=== PATIENT | female | born 1950 | race Caucasian/White ===

== ENCOUNTER → 2020-06-08 | Outpatient (CLI) | payer MEDICARE, OTHER ==
[~2020-06-08] MED LIST: BENAML10/5; HYDACE5 PO; HYDROCHLOROTHIAZIDE; IBUP800 PO; LEVSOD137 PO; NAPR550 PO; OMEPRAZOLE MAGN20 MG; OXYACE5T PO; Prednisone20 MG PO; REDNESS RELIEF15 M1 BOTHEYES; SYNTHROID/LEVOTHROID
== END | disposition home or self-care (01) ==
LOC: PLD 11:49 → LAB SHORT 11:49
DX: D48.5 Neoplasm of uncertain behavior of skin (principal)
CPT/HCPCS: 88305

== ENCOUNTER 2022-06-05 11:23 | Day surgery (SDC) | payer MEDICARE, OTHER ==
[~2022-06-05] VITALS: Ht 165.1 cm; Wt 72.7 kg
--- NOTE | 2022-06-05 12:46 | NUR ---
06/05/22 1246 RED POOLE 0.15MG OF EPI ADDED TO 30MLS OF ROPIVACAINE 0.5% TO CREATE A LOCAL SOLUTION OF ROPIVACAINE 0.5% WITH EPI 1:200,000. LOCAL POURED ONTO STERILE FIELD FOR USE DURING CASE.
--- NOTE | 2022-06-05 13:56 | NUR ---
06/05/22 0851 [facility] C/O PAIN ON ARCH/BALL OF FOOT. FEELS LIKE SOMEONE SQUEEZING IT. SPOKE TO DR. HAMPTON. MAY LOOSEN IGOR WRAP AROUND SPLINT AND APPLY ICE TO BACK OF LEG IN PACU
--- NOTE | 2022-06-05 14:33 | NUR ---
06/05/22 2240 [facility] PT STATED THAT SHE HAD PAIN 9-10/10 WHEN LEAVING PACU. NOW STATES PAIN 6/10. DECLINES FENTANYL IV AT THIS TIME.
== END 2022-06-05 15:12 | disposition home or self-care (01) ==
LOC: ORSCSDS 11:23
PROVIDERS: Podiatrist Foot & Ankle Surgery
PROC: 0QSR04Z Reposition Left Toe Phalanx with Internal Fixation Device, Open Approach (ICD-10-PCS; principal; 2022-06-05 12:45)
PROC: 0SGJ04Z Fusion of Left Tarsal Joint with Internal Fixation Device, Open Approach (ICD-10-PCS; principal; 2022-06-05 12:45)
DX: M21.612 Bunion of left foot (principal); I10 Essential (primary) hypertension; E03.9 Hypothyroidism, unspecified; Z79.899 Other long term (current) drug therapy
CPT/HCPCS: A9270; C1713; J0171; J0690; J1100; J1885; J2250; J2405; J2704; J2795; J3010

== ENCOUNTER → 2023-01-31 | Outpatient (CLI) | payer MEDICARE, OTHER | END | disposition home or self-care (01) | LOC: PLD 08:32 → LAB 08:32 → LAB SHORT 08:32 | DX: L82.1 Other seborrheic keratosis (principal); D48.5 Neoplasm of uncertain behavior of skin | CPT/HCPCS: 88305; 88312 ==